=== PATIENT | male | born 1965 | race Caucasian/White ===

== ENCOUNTER 2021-10-30 05:57 | Day surgery (SDC) | payer OTHER ==
[~2021-10-30 05:57] MED LIST: Sodium Chloride 0.9% 10 ML Syringe FLUSH SCH
[2021-10-30] MEDS ORDERED: fentaNYL 100 MCG/2 ML SDV IV ONE ×3 (05:58→06:59)
[2021-10-30] MEDS ORDERED: Midazolam 1 MG/ML 2 ML SDV IV ONE ×5 (05:58→07:08)
[2021-10-30] MEDS ORDERED: Dextrose 5%-0.45% NaCl 1,000 ML IV SCH (06:00)
[2021-10-30] MEDS ORDERED: Sodium Chloride 0.9% 10 ML Syringe FLUSH PRN (06:00)
[2021-10-30] MEDS ORDERED: Midazolam 1 MG/ML 2 ML SDV ONE (06:10)
[2021-10-30] MEDS ORDERED: fentaNYL 100 MCG/2 ML SDV ONE (06:10)
== END 2021-10-30 09:10 | disposition home or self-care (01) ==
LOC: DL.ENDO 05:57
PROVIDERS: ATTEND Internal Medicine Gastroenterology
DX: Z12.11 Encounter for screening for malignant neoplasm of colon (principal); D68.2 Hereditary deficiency of other clotting factors; J30.2 Other seasonal allergic rhinitis; Z86.16 Personal history of COVID-19; E66.09 Other obesity due to excess calories; Z87.81 Personal history of (healed) traumatic fracture; Z68.26 Body mass index [BMI] 26.0-26.9, adult
CPT/HCPCS: 45378; J2250; J3010; J7042